=== PATIENT | female | born 2000 | race Caucasian/White ===

== ENCOUNTER 2019-03-30 12:43 | Emergency (ER) | payer BC ==
[2019-03-30 12:50] VITALS: BP 104/67; PULSE 86; TEMP 97.7; BMI 27.3
[2019-03-30] MEDS ORDERED: ACETAMINOPHEN 325 MG TABLET (FP) PO ONE (13:28)
--- NOTE | 2019-03-30 13:38 | PDOC ---
History of Present Illness - General Chief Complaint: Pain Stated Complaint: LUQ ABD PAIN Time Seen by Provider: 03/30/19 13:02 History Source: Patient Exam Limitations: No Limitations - History of Present Illness Travel History: No Initial Comments: 03/30/19 13:28 18y F no significant pmhx presents with complaint of LUQ pain - the pt has bene having malaise and fever for a few weeks, went to urgent care had lab work and was dx with mono (lab work on 03/28, mono +, hbg 14.6, hcg 43.2, pl, 168, lyme neg). Pt developed LUQ pain and L shoulder pain last night when she was going to bed - went back to urgent care who referred her to the ED for further evaluation. Pt still endorses a low grade fever this morning, took a motrin. deneis any nausea/vomiting, cp, sob, cough, diarrhea, melena, bpr, dysuria, hematuria. No trauma/falls. pt notse her abd pain is a bit less severe than last night and her LUE pain has resolved. ROS Constitutional - no reported Fever, Chills, HEENT: no reported vision changes, sore throat Respiratory: no reported cough, sob, hemoptysis Cardiac: no reported chest pain, palpitations, light headedness, leg swelling Abd/GI: no reported abd pain, nausea, vomiting, blood per rectum, melena, diarrhea : no reported dysuria, frequency, discharge Musculskelatal - no reported back pain, joint swelling skin - no reported bruising, erythema, rash neurological: no reported headache, numbness, focal weakness, tingling, ataxia, hematologic: no reported easy bruising, easy bleeding Physical Exam GENERAL: The patient is awake, alert, and fully oriented, Nontoxic - in no acute distress. HEAD: Normocephalic, atraumatic. EYES: extraocular movements intact, sclera anicteric, conjunctiva clear. ENT: Normal voice, Moist mucous membranes. NECK: Normal range of motion, supple LUNGS: Breath sounds equal, clear to auscultation bilaterally. No wheezes, no rhonchi, no rales. HEART: Regular rate and rhythm, normal S1 and S2 without murmur, rub or gallop. ABDOMEN: Soft, +splenomegaly, mildly ttp , no ecchyymosis, no rebound/guarding, no CVA tenderness EXTREMITIES: Normal range of motion, no edema. No clubbing or cyanosis. No cords, erythema, or tenderness. NEUROLOGICAL: No facial assymetry, Normal speech, PSYCH: Normal mood, normal affect. SKIN: Warm, Dry, normal turgor, suspect pain may be from stretch splenic capsule will obtian US to r/o rupture, free fluid will ck labs to screen for anemia tylenol for pain will reassess Past History - Past Medical History Allergies/Adverse Reactions: Allergies Allergy/AdvReac Type Severity Reaction Status Date / Time No Known Allergies Allergy Verified 03/30/19 12:44 Home Medications: Ambulatory Orders Norgestimate-Ethinyl Estradiol [Sprintec 28 Day Tablet] 1 each PO DAILY COPD: No - Suicide/Smoking/Psychosocial Hx Smoking History: Never smoked Have you smoked in the past 12 months: No Information on smoking cessation initiated: No Hx Alcohol Use: No *Physical Exam - Vital Signs Last Vital Signs Temp Pulse Resp BP Pulse Ox 97.7 F 86 18 104/67 99 03/30/19 12:43 03/30/19 12:43 03/30/19 12:43 03/30/19 12:43 03/30/19 12:43 ED Treatment Course - LABORATORY CBC & Chemistry Diagram: 03/30/19 13:40 03/30/19 13:40 - RADIOLOGY Radiology Studies Ordered: Category Date Time Status ABDOMEN US [US] Stat Ultrasound 03/30/19 13:27 Ordered Medical Decision Making - Medical Decision Making 03/30/19 13:54 plan - will recheck blood work to eval for anemia will obtain LUQ US to eval for splenic rupture/free fluid tylenol for pain 03/30/19 14:41 labs reviewed no signs of anemia +worsening LFTs (her previous blood work with T[place] 0.4, AST/ALT in low 100s) no RUQ pain, neg murphies suspect effect from mono will dc the pt with out aptient fu return precautions were discussed *DC/Admit/Observation/Transfer Diagnosis at time of Disposition: Mononucleosis syndrome, Elevated liver enzymes - Discharge Dispostion Disposition: HOME Condition at time of disposition: Improved Decision to Admit order: No - Referrals Referrals: [facility] [place] [Provider Group] - Patient Instructions Printed Discharge Instructions: DI for Mononucleosis-Adult Additional Instructions: You have slightly elevated liver enzymes - please follow up with your doctor to have your liver enzymes rechecked. if you have any right sided abdominal pain, vomiting, or any other concerns, return to the ER for further evlauation. Stay away from any contact sports or strenous activities. Print Language: [place]ET[place]ESE - Post Discharge Activity
[2019-03-30] MEDS ORDERED: ACETAMINOPHEN 325 MG TABLET (FP) ONE (13:40)
[2019-03-30 13:58] LABS: HEMOGLOBIN 13.8 GM/dl (10.7-15.3); MCH 28.4 pg (25.7-33.7); MCHC 32.8 g/dl (32.0-36.0); MEAN CELL VOLUME 86.6 fl (80-96); MEAN PLT VOLUME 8.2 fl (7.5-11.1); PLATELET COUNT 147 K/MM3 (134-434); RBC 4.86 M/mm3 (3.60-5.2); RDW 12.4 % (11.6-15.6); WHITE BLOOD COUNT 11.6 K/mm3 (4.0-10.8)
[2019-03-30 14:03] LABS: ALBUMIN 3.5 g/dl (3.4-5.0); CALCIUM 8.8 mg/dl (8.5-10); CREATININE 0.9 mg/dl (0.55-1.3); TOT PROT 7.2 g/dl (6.4-8.2)
[2019-03-30 14:20] LABS: EPITHELIAL CELLS FEW /hpf
[2019-03-30 14:24] LABS: ADD RBC MORPHOLOGY YES
[2019-03-30 14:50] LABS: PLATELET ESTIMATE ADEQUATE
== END 2019-03-30 14:45 | disposition home or self-care (01) ==
LOC: FER 12:43
DX: B27.80 Other infectious mononucleosis without complication (principal); R94.5 Abnormal results of liver function studies
CPT/HCPCS: 36415; 76705-TC; 80053; 81003; 81015; 84703; 85025; 99284-25